=== PATIENT | male | born 1985 | race Caucasian/White ===

== ENCOUNTER 2021-07-28 15:34 | Emergency (ER) | payer OTHER, SELFPAY ==
[2021-07-28 16:04] VITALS: BP 131/87; PULSE 90; RESP 18; TEMP 36.6; O2SAT 97; BMI 28.8
--- NOTE | 2021-07-28 16:44 | ED_ITS ---
HPI - Back Pain/Injury General Chief Complaint: Back Pain/Injury Stated Complaint: back pain Time Seen by Provider: 07/28/21 16:14 Source: patient Mode of arrival: ambulatory Limitations: no limitations History of Present Illness HPI Narrative: 36 y/o male with no medical history presents to the ER with non- radiating, non-traumatic lower back pain for the last 3 days. He works for [employer] and does a lot of heavy lifting and moving of boxes but cannot recall a specific time where he injured his back. He states he woke up with the pain about 4-5 days ago and it has been getting worse. He has had to call out of wo rk. He has not taken any medications for the pain because he did not know what to take. He states the pain is aching and spasming in the entire lower back, worse with movement. No urinary symptoms. No fevers. No IVDA. No LE weakness, numbness, tingling. he reports having a cold and has been in contact with his girlfriend who is COVID-19 positive. He took an at home test today that was negative. He has been having a hard time getting into a comfortable position. MD elicited complaint: back pain Onset (ago): day(s) Timing: constant and progressively worsening Severity: severe Pain scale (0-10): 9 Quality: aching and spasming Location: right lower back and left lower back Radiation: none Exacerbating factors: movement, coughing/sneezing and lifting Relieving factors: immobilization and sitting upright Context: while lifting and turning/twisting Associated symptoms: denies other symptoms Treatments prior to arrival: other (topical lidocaine patch) Work related injury: Yes Related Data Previous Rx's Medication Instructions Recorded cyclobenzaprine 10 mg tablet 10 mg PO TID PRN #10 tab 07/28/21 hydrocodone 5 mg-acetaminophen 325 1 tab PO Q8H PRN #5 tab 07/28/21 mg tablet ibuprofen 800 mg tablet 800 mg PO Q8H PRN #14 tab 07/28/21 Allergies Allergy/AdvReac Type Severity Reaction Status Date / Time No Known Allergies Allergy Unverified 05/21/20 15:22 Review of Systems Review of Systems: Constitutional: No Fever, No Chills ENT/Mouth: No sore throat, No Rhinorrhea Cardiovascular: No Chest Pain, No SOB Respiratory: + Cough, No Sputum Gastrointestinal: No Nausea, No Vomiting,, No abdominal Pain Genitourinary: No Dysuria, No Urinary Frequency, No Hematuria Musculoskeletal: No joint pain, + Myalgias Skin: No Skin Lesions, No rash Neuro: No Weakness, No Numbness Heme/Lymph: No Bruising PMFSH Social History Social History Advance Directives: No Advance Directives Information Provided: No Physical Exam Vital Signs: Vital Signs: Last Vital Signs Temp 98 F 07/28/21 16:04 Pulse 90 07/28/21 16:04 Resp 18 07/28/21 16:04 BP 131/87 07/28/21 16:04 Pulse Ox 97 07/28/21 16:04 Body Mass Index 28.8 Appearance: Alert. Oriented X3. No acute distress. HEENT: normal inspection CVS: Normal heart rate and rhythm. Pulses normal. Respiratory: No respiratory distress. Skin: Skin warm and dry. Normal skin color. Normal skin turgor. No rashes. Back: normal inspection, tenderness of the soft tissues of the middle and lower lumbar areas bilaterally, no central tenderness. no CVA tenderness. limited rotation and flexion of the spine due to pain. Extremities: atraumatic x4, no LE edema. Neuro: Oriented X 3. No motor deficit. No sensory deficit. Gait slow but steady Course Course Course Narrative: 36 yo male presenting with LBP in the setting of recurrent heavy lifting and twisting at work. No red flag symptoms of LBP. No urinary symptoms. Most likely lumbar strain and spasm. Will treat with NSAID and muscle relaxer now and reassess. Will also swab for COVID given his recent exposure. Reevaluation(s) Reevaluation #1: COVID negative. Stable for d/c home with NSAID, muscle relaxer and supportive care. Encouraged to follow up with PCP. MDM - Back Pain/Injury Lab Data Labs: Lab Results 07/28/21 Range/Units 16:47 COVID-19 ([facility]) Negative (Negative) COVID-19 Clin Com See Note Critical Care Time Critical Care Time Critical Care Time: No Discharge Plan Discharge Clinical Impression: Strain of lumbar region Patient Disposition: Home, Self-Care Instructions: Low Back Strain (ED), Lower Back Exercises (ED) Additional Instructions: You were negative for COVID-19 today. Your back pain is most likely due to muscle strain and spasm. No bending, lifting or twisting. Use ice several times per day for 20 minutes at a time for the next 48 hours and then change to heat. Take medications as prescribed to help with pain and discomfort. Only take the hydrocodone for severe pain - do not drive after taking this medication, it can make you lethargic. Follow up with your Primary Care Doctor this week. If your pain worsens, if you develop new numbness, tingling, weakness, loss of function or incontinence call 911 or come back to the ER right away for evaluation. Prescriptions: New cyclobenzaprine 10 mg tablet 10 mg PO TID PRN (Reason: muscle spasm) Qty: 10 RF: 0 ibuprofen 800 mg tablet 800 mg PO Q8H PRN (Reason: pain) Qty: 14 RF: 0 hydrocodone-acetaminophen 5-325 mg tablet 1 tab PO Q8H PRN (Reason: severe pain (scale score 7-10)) Qty: 5 RF: 0 Referrals: [facility] [Provider Group] - 5 days (LBP, work related) Stand Alone Forms: Work/School Release
[2021-07-28 17:09] LABS: COVID-19 Test Negative (Negative)
[2021-07-28] MEDS: Cyclobenzaprine HCl 10 MG TABLET PO (17:51)
[2021-07-28] MEDS: Ibuprofen 600 MG TABLET PO (17:51)
== END 2021-07-28 17:55 | disposition home or self-care (01) ==
PROVIDERS: Physician Assistant; Emergency Provider Emergency Medicine; PCP Internal Medicine
DX: M54.50 Low back pain, unspecified (principal); R50.9 Fever, unspecified; Z20.822 Contact with and (suspected) exposure to COVID-19; Z79.899 Other long term (current) drug therapy
CPT/HCPCS: 36415; 87635; 99283

== ENCOUNTER 2021-08-02 09:56 | Emergency (ER) | payer SELFPAY ==
--- NOTE | ~2021-08-02 | XR_ITS ---
EXAMINATION: XR LUMBOSACRAL SPINE CLINICAL INFORMATION: Atraumatic lumbar pain COMPARISON: None TECHNIQUE: Three views of the lumbosacral spine. FINDINGS: The vertebral bodies and posterior elements are normal. The disc spaces are preserved and the vertebral alignment is normal. The paraspinal soft tissues are normal. XR/XR lumbar spine 2-3V IMPRESSION: Unremarkable lumbar spine examination.
[2021-08-02 10:46] VITALS: BP 133/79; PULSE 74; RESP 16; TEMP 36.6; O2SAT 97; BMI 28.8
--- NOTE | 2021-08-02 11:09 | ED_ITS ---
HPI - Back Pain/Injury General Chief Complaint: Back Pain/Injury Stated Complaint: back pain Time Seen by Provider: 08/02/21 11:09 Source: patient Mode of arrival: ambulatory Limitations: no limitations History of Present Illness HPI Narrative: patient was seen Monday, denies injury. Does heavy work but nothing that he recalls. No numbness, no bowel or bladder issues. Pain is worse with sitting. MD elicited complaint: back pain Onset (ago): day(s) Timing: intermittent Severity: mild Quality: sharp and aching Location: lumbar spine Exacerbating factors: none Associated symptoms: denies other symptoms Related Data Previous Rx's Medication Instructions Recorded cyclobenzaprine 10 mg tablet 10 mg PO TID PRN #10 tab 07/28/21 hydrocodone 5 mg-acetaminophen 325 1 tab PO Q8H PRN #5 tab 07/28/21 mg tablet ibuprofen 800 mg tablet 800 mg PO Q8H PRN #14 tab 07/28/21 gabapentin 100 mg capsule 100 mg PO TID #20 cap 08/02/21 Allergies Allergy/AdvReac Type Severity Reaction Status Date / Time No Known Allergies Allergy Unverified 05/21/20 15:22 Review of Systems Constitutional: Constitutional: Reports no additional constitutional complaints Eyes: Eyes: Reports no additional eye complaints ENT: Denies dizziness Cardiovascular: Cardiovascular: Reports no additional cardiovascular complaints Respiratory: Respiratory: Reports as per HPI Gastrointestinal: Gastrointestinal: Reports no additional gastrointestinal complaints Musculoskeletal: Musculoskeletal: Reports no additional musculoskeletal complaints Integumentary/Breasts: Skin/Breast: Denies rash Neurologic: Reports system reviewed and no additional complaints, except as documented, Denies dizziness and Denies Sensory deficit (Neuro) Psychiatric: Psychiatric: Denies anxiety [facility] Social History Social History Advance Directives: No Physical Exam Vital Signs: Vital Signs: Last Vital Signs Temp 97.8 F 08/02/21 10:46 Pulse 74 08/02/21 10:46 Resp 16 08/02/21 10:46 BP 133/79 08/02/21 10:46 Pulse Ox 97 08/02/21 10:46 Body Mass Index 28.8 Const: General: healthy appearing Nutritional Appearance: average body habitus Orientation/consciousness: oriented to person and patient oriented x3 Limitations: no limitations HENMT: Head: Yes normal to inspection Ears: external ears normal General nose exam: Normal external nose present Mouth: Normal oral and palatal mucosa present and oropharynx normal Throat: Yes posterior oropharynx normal Eyes: General: appearance normal, both eyes and all related structures Neck: Other: supple Neck: Yes normal visual inspection Chest: Chest palpation & inspection: normal inspection of the chest Resp: Auscultation: clear to auscultation bilaterally Cardio: Jugular venous distension: no JVD Rate: regular rate Rhythm: regular rhythm Heart sounds: S1 normal heart sound present and S2 normal heart sound present GI: Inspection: Yes normal to inspection Palpation (GI): Soft to palpation, nontender and No hepatosplenomegaly present Auscultation: normal bowel sounds Back/Spine/Pelvis: Other: Mild SI joint tenderness Skin: General skin exam: no rashes or lesions noted Neuro: General: oriented to person and patient oriented x3 Cranial nerves: Yes CN's II-XII intact bilaterally Motor exam (neuro): 5/5 motor strength present throughout Sensory Exam: No Sensory deficit (Neuro) Extrem: General: Yes normal to inspection Psych: Appearance: grossly normal MDM - Back Pain/Injury Imaging Data lumbar sacral spine: Radiologist's impression: FINDINGS: The vertebral bodies and posterior elements are normal. The disc spaces are preserved and the vertebral alignment is normal. The paraspinal soft tissues are normal. XR/XR lumbar spine 2-3V IMPRESSION: Unremarkable lumbar spine examination. Discharge Plan Discharge Clinical Impression: Lumbar radiculopathy Strain of lumbar region Qualifiers: Encounter type: initial encounter Qualified Code(s): S39.012A - Strain of mus eliezer, fascia and tendon of lower back, initial encounter Patient Disposition: Home, Self-Care Instructions: Acute Low Back Pain (ED), Lumbar Radiculopathy (ED) Prescriptions: New gabapentin 100 mg capsule 100 mg PO TID Qty: 20 RF: 0 No Action cyclobenzaprine 10 mg tablet 10 mg PO TID PRN (Reason: muscle spasm) Qty: 10 RF: 0 ibuprofen 800 mg tablet 800 mg PO Q8H PRN (Reason: pain) Qty: 14 RF: 0 hydrocodone-acetaminophen 5-325 mg tablet 1 tab PO Q8H PRN (Reason: severe pain (scale score 7-10)) Qty: 5 RF: 0 Referrals: Kevon Fallon MD [Primary Care Provider] - 1 week
[2021-08-02] MEDS: Gabapentin 100 MG CAPSULE PO (11:27)
[2021-08-02] MEDS: Ketorolac Tromethamine 60 MG/2 ML VIAL IM (11:27)
== END 2021-08-02 12:57 | disposition home or self-care (01) ==
PROVIDERS: Emergency Provider Emergency Medicine; PCP Internal Medicine
DX: S39.012A Strain of muscle, fascia and tendon of lower back, initial encounter (principal); M54.16 Radiculopathy, lumbar region; X50.0XXA Overexertion from strenuous movement or load, initial encounter; Y93.9 Activity, unspecified; Y92.9 Unspecified place or not applicable; Y99.0 Civilian activity done for income or pay; Z79.899 Other long term (current) drug therapy
CPT/HCPCS: 72100; 96372; 99283; 99284; J1885

== ENCOUNTER 2023-01-06 07:20 | Emergency (ER) | payer OTHER, SELFPAY ==
--- NOTE | ~2023-01-06 | CT_ITS ---
EXAMINATION: CT ABDOMEN AND PELVIS WITHOUT CONTRAST CLINICAL INFORMATION: Flank pain COMPARISON: 08/12/2017 TECHNIQUE: Multidetector volumetric imaging was performed from the superior aspect of the liver through the pubic symphysis. Sagittal and coronal reformatted images were obtained on the technologist's workstation. This CT examination was performed using dose optimization techniques as appropriate, variously including the following: *Automated exposure control *Adjustment of mA and/or kV according to patient size (this includes techniques or standardized protocols for targeted exams where dose is matched to indication/reason for exam; i.e. extremities or head) *Use of iterative reconstruction technique DLP: 653 mGy-cm FINDINGS: LUNG BASES: The visualized lung bases are unremarkable. LIVER, GALLBLADDER, AND BILIARY TREE: The liver is normal in size, shape, and attenuation. No focal hepatic lesion or biliary ductal dilatation is present. There are several calculi within the gallbladder neck, the largest measuring 13 x 8 mm, though this could reflect a coalescence of multiple smaller calculi. In addition, there is a 3 mm calculus in the proximal cystic duct, with a suggestion of wall thickening of the duct about the calculus. Gallbladder wall thickening and very mild pericholecystic edema is suspected. No calculi are detected in the distal common bile duct. There is no intrahepatic biliary ductal dilatation. PANCREAS: Unremarkable. SPLEEN: Unremarkable. ADRENAL GLANDS: Unremarkable. KIDNEYS AND URETERS: The kidneys are normal in size, shape, and attenuation. No hydronephrosis, hydroureter, or calculi seen. No perinephric stranding. BLADDER: Unremarkable. GASTROINTESTINAL TRACT: A sliding hiatal hernia is present. Sigmoid diverticulosis is present without diverticulitis. The small bowel and appendix are unremarkable ABDOMINAL WALL: No significant hernia is appreciated. LYMPH NODES: Normal. VASCULAR: Unremarkable. PELVIC VISCERA: Unremarkable. OSSEOUS STRUCTURES: Unremarkable. CT/CT abdomen pelvis wo IV con IMPRESSION: 1. Cholelithiasis, with gallbladder wall thickening and mild pericholecystic infiltration cyst is just for acute cholecystitis. 2. Calculi within the gallbladder neck and cystic duct, with thickening of the adjacent cystic duct wall, but no intrahepatic biliary ductal dilatation or distal common bile duct calculi are evident. 3. Colonic diverticulosis without diverticulitis. Fleischner guidelines were followed.
--- NOTE | 2023-01-06 07:42 | ED_ITS ---
HPI - General Adult General Chief complaint: Abdominal Pain Stated complaint: abd pain quest kidney stone Time Seen by Provider: 01/06/23 07:41 Source: patient Mode of arrival: ambulatory Limitations: no limitations History of Present Illness HPI narrative: Patient is a 37 year old assigned male at with a history of kidney stones presenting to the emergency department today with abdominal pain. Patient states that he has been having intermittent abdominal pain and he is concerned that it may be a kidney stone that just isn't passing. Patient denies any dizziness, lightheadedness, nausea, vomiting, fever, chills, blurry vision, double vision, loss of vision, chest pain, difficulty breathing, shortness of breath, back pain, night sweats, pain with urination, increased urinary frequency, increased urinary urgency, blood in his urine or stool, syncope or a near syncopal episode, recent trauma or falls, bowel incontinence, bladder incontinence, bowel retention, bladder retention, or any other complaints at this time. Onset (ago): day(s) Location: abdomen Radiation: non-radiation Severity: mild Severity scale (1-10): 3 Relieving factors: none Exacerbating factors: none Associated symptoms: denies other symptoms Treatments prior to arrival: none Related Data Previous Rx's Medication Instructions Recorded cyclobenzaprine 10 mg tablet 10 mg PO TID PRN muscle spasm #10 07/28/21 tabs hydrocodone 5 mg-acetaminophen 325 1 tab PO Q8H PRN severe pain 07/28/21 mg tablet (scale score 7-10) #5 tabs ibuprofen 800 mg tablet 800 mg PO Q8H PRN pain #14 tabs 07/28/21 gabapentin 100 mg capsule 100 mg PO TID #20 caps 08/02/21 Allergies Allergy/AdvReac Type Severity Reaction Status Date / Time No Known Allergies Allergy Unverified 05/21/20 15:22 Review of Systems Constitutional: Constitutional: Reports no additional constitutional complaints, Denies chills, Denies fever(s) and Denies night sweats Eyes: Eyes: Reports no additional eye complaints, Denies blurry vision, Denies change in vision, Denies diplopia, Denies eye discharge, Denies loss of vision and Denies eye pain ENT: Denies dizziness Cardiovascular: Cardiovascular: Reports no additional cardiovascular complaints, Denies chest pain, Denies lightheadedness, Denies Loss of Co nsciousness and Denies dyspnea Respiratory: Respiratory: Reports no additional respiratory complaints and Denies dyspnea Gastrointestinal: Gastrointestinal: Reports no additional gastrointestinal complaints, Reports abdominal pain, Denies melena, Denies hematochezia, Denies change in bowel habits and Denies change in stool character Genitourinary: Genitourinary: Reports no additional male genitourinary complaints, Denies hematuria, Denies oliguria, Denies difficulty urinating, Denies dysuria, Denies urinary frequency, Denies urinary hesitancy, Denies urinary incontinence and Denies urinary urgency Musculoskeletal: Musculoskeletal: Reports no additional musculoskeletal complaints, Denies numbness and Denies tingling Neurologic: Denies dizziness, Denies loss of vision, Denies numbness and Denies tingling Psychiatric: Psychiatric: Reports no additional psychiatric complaints Endocrine: Endocrine: Reports no additional endocrine complaints Hematologic/Lymphatic: Hematologic/Lymphatic: Reports no additional hematologic/lymphatic complaints Allergic/Immunologic: Allergic/Immunologic: Reports no additional allergic/immunologic complaints PMFSH Past Medical History Attestation statement: The following information was validated with the patient. Source: old records reviewed and nursing notes reviewed Social History Social History Smoked in Last 30 Days: No Use of substances other than those prescribed or required for medical reasons: No Advance Directives: No Advance Directives Information Provided: Yes Physical Exam ED Vital Signs: Vital Signs - 24 hr 01/06/23 07:44 01/06/23 07:54 Temperature 97.9 F 97.9 F Pulse Rate 50 50 Respiratory Rate 18 16 Blood Pressure 120/79 120/79 Pulse Oximetry 99 96 Oxygen Delivery Method Room Air Room Air BMI result Body Mass Index 28.9 Const General: cooperative, no acute distress, alert and awake Nutritional Appearance: well nourished Orientation/consciousness: patient oriented x3 Limitations: no limitations HENMT Head: Yes normal to inspection and Yes atraumatic Ears: hearing grossly normal bilaterally and external ears normal General nose exam: Normal external nose present, no nasal discharge noted and no epistaxis Face and sinus: Yes normal facial exam, No abrasion and No laceration Mouth: Normal oral and palatal mucosa present, no drooling and no muffled voice Eyes General: appearance normal, both eyes and all related structures Periorbital: periorbital findings normal Eyelids: Yes eyelids normal Conjunctivae: conjunctivae normal Pupils: Equal, round and reactive pupils present EOM: EOMs intact bilaterally Neck Neck: Yes normal visual inspection, Yes full ROM and Yes no lymphadenopathy Chest Chest palpation & inspection: normal inspection of the chest Resp Effort & Inspection: normal respiratory effort and able to speak in complete sentences Auscultation: clear to auscultation bilaterally GI Inspection: Yes normal to inspection Palpation (GI): Soft to palpation, not firm, nontender and no guarding Neuro General: patient oriented x3 and moves all extremities Cranial nerves: Yes Equal, round and reactive pupils present Cognition (Neuro): normal cognition Motor exam (neuro): 5/5 motor strength present throughout Sensory Exam: Normal double simultaneous stimulation for sensation Coordination: [id number]-[id number] test normal Extrem General: Yes normal to inspection, Yes full ROM and Yes capillary refill normal Psych Appearance: grossly normal Mental Status: mental status grossly normal Affect: normal affect Attitude: cooperative Thought process: Normal thought process present Thought content: Normal thought content present Insight: Good insight present (Psych) Medical Decision Making Medical Decision Making MDM Narrative: Patient is a 37 year old assigned male at with a history of kidney stones presenting to the emergency department today with intermittent diffuse abdominal pain. Patient's physical exam was unremarkable. Patient's blood work was unremarkable. Patient's urine showed blood but no acute evidence of infection. Patient's abdomen/pelvis CT showed evidence of cholelithiasis with possible cholecystitis. I spoke to the general surgery team who recommended the patient follow up outpatient on Monday given he is hemodynamically stable and does not have any symptoms presently. I explained my physical exam findings as well as all test results to the patient. I answered all questions asked by the patient. Patient received IM Toradol which he stated helped his symptoms significantly. I stressed the importance of the patient taking his medication as prescribed. I stressed the importance of the patient following up with his primary care provider and a general surgeon on 01/09/2023. I stressed the importance of the patient returning to the emergency department immediately if his symptoms were to worsen or if he were to develop any dizziness, shortness of breath, difficulty breathing, chest pain, blurry vision, loss of vision, nausea, vomiting, abdominal pain, fever, chills, back pain, or any other complaints. Patient verbalized agreement and understanding with this treatment plan and discharge. Differential Diagnosis Differential Diagnoses: The differential diagnosis associated with the presentation includes cholelithiasis, kidney stone Admission/Observation Consideration of admission/observation: Escalation of care including admission/observation considered Admission of this patient was considered. If the general surgery team had concern of an acute cholecystitis requiring surgical intervention, the patient would have been admitted. Consult Healthcare Provider Management of the patient was discussed with: Director Of Gift Planning (spoke to general surgeon as written in the MDM portion of this chart) Lab Data [facility] Lab Attestation statement: I reviewed the patient's lab results. 01/06/23 07:53 01/06/23 07:53 Labs: Lab Results 01/06/23 01/06/23 01/06/23 Range/Units 07:53 07:53 07:53 WBC 7.1 (4.8-10.8) X10*3/uL RBC 4.99 (4.60-5.80) X10*6/uL Hgb 14.5 (14.0-18.0) g/dl Hct 41.6 L (42.0-52.0) % MCV 83.4 (80.0-98.0) fL MCH 29.1 (27.0-33.0) pg MCHC 34.9 (31.0-36.0) g/dl RDW 12.6 (11.0-16.0) % Plt Count 247 (160-400) X10*3/uL MPV 9.1 L (9.4-12.4) fL Immature Gran % (Auto) 0.4 (0.0-0.4) % Neut % (Auto) 56.0 (45-73) % Lymph % (Auto) 31.5 (20-40) % [place] % (Auto) 7.6 (2-11) % Eos % (Auto) 3.9 (0-4) % Baso % (Auto) 0.6 (0-2) % Lymph # (Auto) 2.2 (1.2-4.9) X10*3/uL [place] # (Auto) 0.5 (0.1-1.2) X10*3/uL Eos # (Auto) 0.3 (0.0-0.4) X10*3/uL Baso # (Auto) 0.0 (0.0-0.2) X10*3/uL Abs Immat Gran (auto) 0.03 (0.00-0.03) X10*3/uL Absolute Neuts (auto) 4.0 (2.0-8.3) x10*3/uL Absolute Nucleated RBC 0.000 (0.0-0.012) X10*3/uL Nucleated RBC % (auto) 0.0 (0.0-0.2) /100WBC Sodium 141 (135-145) mmol/L Potassium 3.9 (3.3-5.1) mmol/L Chloride 110 H (96-108) mmol/L Carbon Dioxide 23 (22-29) mmol/L Anion Gap 12 (12-20) BUN 17 H (9-16) mg/dL Creatinine 1.12 (0.5-1.4) mg/dL Estim Creat Clear Calc 112.9 Estimated GFR > 60 Random Glucose 102 (60-115) mg/dL Estimat Average Glucose 103 mg/dL Hemoglobin A1c % 5.2 % Calcium 9.4 (8.4-10.2) mg/dL Magnesium 2.2 (1.6-2.6) mg/dL Total Bilirubin 0.7 (0.0-1.0) mg/dL AST 18 (5-37) U/L ALT 27 (0-40) U/L Alkaline Phosphatase 73 (39-117) U/L Total Protein 6.7 (6.5-8.0) g/dL Albumin 4.1 (3.5-5.0) g/dL Urine Color Urine Appearance Urine pH (5.0-9.0) Ur Specific [place] (1.005-1.025) Urine Protein (Neg-Trace) mg/dL Urine Glucose (UA) (Negative) mg/dL Urine Ketones (Negative) mg/dL Urine Blood (Negative) Urine Nitrite (Negative) Ur Leukocyte Esterase (Negative) Urine RBC (0-2) /HPF Urine WBC (0-5) /HPF Ur Squamous Epith Cells (0-2) /HPF Urine Bacteria (None Seen) Hyaline Casts (0-2) /LPF 01/06/23 Range/Units 08:16 WBC (4.8-10.8) X10*3/uL RBC (4.60-5.80) X10*6/uL Hgb (14.0-18.0) g/dl Hct (42.0-52.0) % MCV (80.0-98.0) fL MCH (27.0-33.0) pg MCHC (31.0-36.0) g/dl RDW (11.0-16.0) % Plt Count (160-400) X10*3/uL MPV (9.4-12.4) fL Immature Gran % (Auto) (0.0-0.4) % Neut % (Auto) (45-73) % Lymph % (Auto) (20-40) % [place] % (Auto) (2-11) % Eos % (Auto) (0-4) % Baso % (Auto) (0-2) % Lymph # (Auto) (1.2-4.9) X10*3/uL [place] # (Auto) (0.1-1.2) X10*3/uL Eos # (Auto) (0.0-0.4) X10*3/uL Baso # (Auto) (0.0-0.2) X10*3/uL Abs Immat Gran (auto) (0.00-0.03) X10*3/uL Absolute Neuts (auto) (2.0-8.3) x10*3/uL Absolute Nucleated RBC (0.0-0.012) X10*3/uL Nucleated RBC % (auto) (0.0-0.2) /100WBC Sodium (135-145) mmol/L Potassium (3.3-5.1) mmol/L Chloride (96-108) mmol/L Carbon Dioxide (22-29) mmol/L Anion Gap (12-20) BUN (9-16) mg/dL Creatinine (0.5-1.4) mg/dL Estim Creat Clear Calc Estimated GFR Random Glucose (60-115) mg/dL Estimat Average Glucose mg/dL Hemoglobin A1c % % Calcium (8.4-10.2) mg/dL Magnesium (1.6-2.6) mg/dL Total Bilirubin (0.0-1.0) mg/dL AST (5-37) U/L ALT (0-40) U/L Alkaline Phosphatase (39-117) U/L Total Protein (6.5-8.0) g/dL Albumin (3.5-5.0) g/dL Urine Color Yellow Urine Appearance Clear Urine pH 5.5 (5.0-9.0) Ur Specific [place] >= 1.030 H (1.005-1.025) Urine Protein Trace (Neg-Trace) mg/dL Urine Glucose (UA) Negative (Negative) mg/dL Urine Ketones Negative (Negative) mg/dL Urine Blood Moderate (2+) H (Negative) Urine Nitrite Negative (Negative) Ur Leukocyte Esterase Trace H (Negative) Urine RBC 6-10 H (0-2) /HPF Urine WBC 21-50 H (0-5) /HPF Ur Squamous Epith Cells 0-2 (0-2) /HPF Urine Bacteria None Seen (None Seen) Hyaline Casts 0-2 (0-2) /LPF Independent Interpretation I performed an independent interpretation of an: CT Scan Interpretation: My interpretation is in agreement with the radiologist's impression of this imaging study. EXAMINATION: CT ABDOMEN AND PELVIS WITHOUT CONTRAST? CLINICAL INFORMATION: Flank pain? COMPARISON: 08/12/2017 TECHNIQUE: Multidetector volumetric imaging was performed from the superior aspect of the liver through the pubic symphysis. Sagittal and coronal reformatted images were obtained on the technologist's workstation.? This CT examination was performed using dose optimization techniques as appropriate, variously including the following: *Automated exposure control *Adjustment of mA and/or kV according to patient size (this includes techniques or standardized protocols for targeted exams where dose is matched to indication/reason for exam; i.e. extremities or head) *Use of iterative reconstruction technique DLP: 653 mGy-cm FINDINGS: LUNG BASES: The visualized lung bases are unremarkable.? LIVER, GALLBLADDER, AND BILIARY TREE: The liver is normal in size, shape, and attenuation. No focal hepatic lesion or biliary ductal dilatation is present. There are several calculi within the gallbladder neck, the largest measuring 13 x 8 mm, though this could reflect a coalescence of multiple smaller calculi. In addition, there is a 3 mm calculus in the proximal cystic duct, with a suggestion of wall thickening of the duct about the calculus. Gallbladder wall thickening and very mild pericholecystic edema is suspected. No calculi are detected in the distal common bile duct. There is no intrahepatic biliary ductal dilatation.? PANCREAS: Unremarkable.? SPLEEN: Unremarkable.? ADRENAL GLANDS: Unremarkable.? KIDNEYS AND URETERS: The kidneys are normal in size, shape, and attenuation. No hydronephrosis, hydroureter, or calculi seen. No perinephric stranding. ? BLADDER: Unremarkable.? GASTROINTESTINAL TRACT: A sliding hiatal hernia is present. Sigmoid diverticulosis is present without diverticulitis. The small bowel and appendix are unremarkable ? ABDOMINAL WALL: No significant hernia is appreciated.? LYMPH NODES: Normal. VASCULAR: Unremarkable. PELVIC VISCERA: Unremarkable.? OSSEOUS STRUCTURES: Unremarkable.? CT/CT abdomen pelvis wo IV con IMPRESSION: ? 1. Cholelithiasis, with gallbladder wall thickening and mild pericholecystic infiltration cyst is just for acute cholecystitis. ? 2. Calculi within the gallbladder neck and cystic duct, with thickening of the adjacent cystic duct wall, but no intrahepatic biliary ductal dilatation or distal common bile duct calculi are evident. ? 3. Colonic diverticulosis without diverticulitis. ? Fleischner guidelines were followed. Dictated By: Tavares Lozano MD Signed By: Electronically signed by Tavares Lozano MD 01/06/23 7449 Critical Care Time Critical Care Time Critical Care Time: Yes Total Critical Care Time: 30 Attestation: I spent 30 minutes of Critical Care Time with this patient. This does not include time spent on separately reported billable procedures. Discharge Plan Discharge Clinical Impression: Cholelithiasis Patient Disposition: Home, Self-Care Instructions: Gallstones (ED) Additional Instructions: Follow up with your primary care provider and a general surgeon. Return to the emergency department immediately if your symptoms worsen or if you develop any dizziness, shortness of breath, difficulty breathing, chest pain, blurry vision, loss of vision, nausea, vomiting, abdominal pain, fever, chills, back pain, or any other complaints. Prescriptions: No Action gabapentin 100 mg capsule 100 mg PO TID Qty: 20 0RF cyclobenzaprine 10 mg tablet 10 mg PO TID PRN (Reason: muscle spasm) Qty: 10 0RF ibuprofen 800 mg tablet 800 mg PO Q8H PRN (Reason: pain) Qty: 14 0RF hydrocodone-acetaminophen 5-325 mg tablet 1 tab PO Q8H PRN (Reason: severe pain (scale score 7-10)) Qty: 5 0RF Referrals: [facility] [place] General Surgeons [Provider Group] (Call to establish and follow up with a general surgeon. Plan follow up in the office on Monday01/09/2023) Kevon Fallon III, MD [Primary Care Provider] - Stand Alone Forms: Work/School Release Print Language: Hungarian
[2023-01-06 07:44] VITALS: BP 120/79; PULSE 50; RESP 18; TEMP 36.6; O2SAT 99
[2023-01-06 07:54] VITALS: BP 120/79; PULSE 50; RESP 16; TEMP 36.6; O2SAT 96; BMI 28.9
[2023-01-06 07:59] LABS: MANUAL DIFF FLAG NO
[2023-01-06 08:02] LABS: Basophils Percent Auto 0.6 % (0-2); Eosinophils Absolute Auto 0.3 X10*3/uL (0.0-0.4); Eosinophils Percent Auto 3.9 % (0-4); Hematocrit 41.6 % (42.0-52.0); Hemoglobin 14.5 g/dl (14.0-18.0); Imm Gran Abs Auto 0.03 X10*3/uL (0.00-0.03); Imm Gran Pct Auto 0.4 % (0.0-0.4); Lymphocytes Absolute Auto 2.2 X10*3/uL (1.2-4.9); Lymphocytes Percent Auto 31.5 % (20-40); Mean Corpuscular HGB Conc 34.9 g/dl (31.0-36.0); Mean Corpuscular Hemoglobin 29.1 pg (27.0-33.0); Mean Corpuscular Volume 83.4 fL (80.0-98.0); Mean Platelet Volume 9.1 fL (9.4-12.4); Monocytes Absolute Auto 0.5 X10*3/uL (0.1-1.2); Monocytes Percent Auto 7.6 % (2-11); Platelet Count 247 X10*3/uL (160-400); Red Blood Count 4.99 X10*6/uL (4.60-5.80); Red Cell Distribution Width 12.6 % (11.0-16.0); White Blood Count 7.1 X10*3/uL (4.8-10.8)
[2023-01-06 08:12] LABS: Estimated Average Glucose 103 mg/dL; Hemoglobin A1c % 5.2 %
[2023-01-06 08:15] LABS: Alanine Aminotransferase 27 U/L (0-40); Albumin Level 4.1 g/dL (3.5-5.0); Alkaline Phosphatase 73 U/L (39-117); Anion Gap 12 (12-20); Aspartate Amino Transferase 18 U/L (5-37); Bilirubin Total 0.7 mg/dL (0.0-1.0); Blood Urea Nitrogen 17 mg/dL (9-16); Calcium 9.4 mg/dL (8.4-10.2); Carbon Dioxide 23 mmol/L (22-29); Chloride 110 mmol/L (96-108); Creatinine Clr Calc Pharmacy 112.9; Estimated Glomerular Filt Rate > 60; Glucose Random 102 mg/dL (60-115); Magnesium 2.2 mg/dL (1.6-2.6); Potassium 3.9 mmol/L (3.3-5.1); Sodium 141 mmol/L (135-145); Total Protein 6.7 g/dL (6.5-8.0)
[2023-01-06 08:33] LABS: Appearance Urine Clear; Color Urine Yellow; Glucose Urine UA Negative (Negative); Leukocyte Esterase Urine Trace (Negative); Nitrite Urine Negative (Negative); PH 5.5 (5.0-9.0); Specific Gravity - Urine >= 1.030 (1.005-1.025); UMIC TRIGGER UACC YES; Urine Blood Moderate (2+) (Negative); Urine Ketones Negative (Negative); Urine Protein Trace mg/dL (Neg-Trace)
[2023-01-06 08:36] LABS: Bacteria Urine None Seen (None Seen); Hyaline Casts Urine 0-2 /LPF (0-2); Squamous Epithelial Cell Urine 0-2 /HPF (0-2); UACC Culture Trigger YES; WBC Urine 21-50 /HPF (0-5)
[2023-01-06 09:56] VITALS: BP 116/73; PULSE 53; RESP 18; TEMP 36.4; O2SAT 97
[2023-01-06] MEDS: Ketorolac Tromethamine 15 MG/ML VIAL IM (10:00)
== END 2023-01-06 10:04 | disposition home or self-care (01) ==
PROVIDERS: Physician Assistant Medical; Emergency Provider Emergency Medicine; PCP Internal Medicine
DX: K80.20 Calculus of gallbladder without cholecystitis without obstruction (principal); R10.2 Pelvic and perineal pain; R10.9 Unspecified abdominal pain; Z79.899 Other long term (current) drug therapy
CPT/HCPCS: 36415; 74176; 80053; 81001; 83036; 83735; 85025; 87086; 96372; 99284; J1885

== ENCOUNTER → 2023-01-16 15:33 | Outpatient (BNVA) | payer OTHER, SELFPAY | PROVIDERS: PCP Internal Medicine; Visit Provider Surgery ==

== ENCOUNTER 2023-02-03 08:03 | Day surgery (SDC) | payer OTHER, SELFPAY ==
[2023-01-31 15:20] VITALS: BMI 28.6
--- NOTE | 2023-02-02 09:52 | HO.ANESPROP2 ---
Documented by User: Rehana Velazco NP 02/02/23 09:52 HPI - Anesthesia Eval Consult details Narrative: 37yo M for Cholecystectomy Laparoscopic, poss open PMFSH Active Problems Active Problems: All Active Problems (Updated 01/31/23 @ 15:07 by Cleo Kaufman RN) Gallstones (Acute) Past Medical History Medical History (Updated 01/31/23 @ 15:07 by Cleo Kaufman RN) Acid reflux Anxiety Gallstones Surgical History Surgical History (Updated 01/31/23 @ 15:02 by Cleo Kaufman RN) History of mandibular surgery Hx of surgical procedure Social History Social History Alcohol intake: never Patient Tobacco Use Status: Never used Tobacco Second Hand Smoke Exposure: No Use of substances other than those prescribed or required for medical reasons: No Are you DNR?: No Advance Directives: No Advance Directives Information Provided: Yes Advance Directives on File: No Meds Allergies Allergy/AdvReac Type Severity Reaction Status Date / Time No Known Allergies Allergy Verified 02/03/23 09:56 Home Medications Medication Instructions Recorded Confirmed Last Taken Type albuterol sulfate 90 mcg/actuation 2 puff inhalation Q4H PRN wheezing 01/31/23 01/31/23 Unknown History aerosol inhaler multivitamin 1 tab PO DAILY 01/31/23 01/31/23 Unknown History omeprazole 20 mg capsule,delayed 20 mg PO DAILY PRN Acid Reflux 01/31/23 01/31/23 Unknown History release Exam Exam Date and Time: February 02, 2023 0952 Height,Weight and Vital Signs: Height 6 ft 2 in Weight 101.151 kg Pertinent Lab Results Pertinent Lab Results: Laboratory Tests 01/06/23 01/06/23 07:53 07:53 WBC 7.1 Hgb 14.5 Hct 41.6 L Plt Count 247 Sodium 141 Potassium 3.9 Chloride 110 H Carbon Dioxide 23 BUN 17 H Creatinine 1.12 Assessment and Plan Assessment Anesthesia Assessment: Chart Reviewed Documented by User: Tessa Romeo MD 02/03/23 10:41 PMFSH Past Medical History Medical History (Updated 01/31/23 @ 15:07 by Cleo Kaufman, RN) Acid reflux Anxiety Gallstones Surgical History Surgical History (Updated 01/31/23 @ 15:02 by Cleo Kaufman, RN) History of mandibular surgery Hx of surgical procedure History of Problems with Anesthesia: No Social History Social History Alcohol intake: never Patient Tobacco Use Status: Never used Tobacco Second Hand Smoke Exposure: No Use of substances other than those prescribed or required for medical reasons: No Are you DNR?: No Advance Directives: No Advance Directives Information Provided: Yes Advance Directives on File: No Meds Allergies Allergy/AdvReac Type Severity Reaction Status Date / Time No Known Allergies Allergy Verified 02/03/23 09:56 Home Medications Medication Instructions Recorded Confirmed Last Taken Type albuterol sulfate 90 mcg/actuation 2 puff inhalation Q4H PRN wheezing 01/31/23 01/31/23 Unknown History aerosol inhaler multivitamin 1 tab PO DAILY 01/31/23 01/31/23 Unknown History omeprazole 20 mg capsule,delayed 20 mg PO DAILY PRN Acid Reflux 01/31/23 01/31/23 Unknown History release Exam Airway Mallampati Class: III (hx jaw surgery) TM Dist: >3cm Neck ROM: Full Loose/Missing/Broken Teeth: No Heart: RRR Lungs: CTA Assessment and Plan Assessment Anesthesia Assessment: Anesthesia Plan Discussed Final Anesthetic Review History of Problems with Anesthesia: No NPO: Yes ASA Class: II Final Preanesthetic Review: Meds/Allgs Chart Reviewed, Consent Obtained/Reviewed and Anes Risks/Benef Reviewed Patient Risk: Low Procedure Risk: Intermediate Anesthetic Plan Anesthetic Plan: GA Disposition: Standard PACU
[2023-02-03] VITALS (7 sets, daily range): BP systolic 120–127; BP diastolic 59–75; PULSE 52–75; RESP 12–16; TEMP 36.3–36.4; O2SAT 96–100
[2023-02-03] MEDS: Lactated Ringers 1,000 ML 100 ML IVCONT (08:46)
--- NOTE | 2023-02-03 09:13 | MHC.SHP ---
Pre-Procedural Eval Section A Date of Service: 02/03/23 The patient is an INPATIENT: No Changes since office visit: No Cold of Flu in the past 2 weeks, No New Medical Problems, No Changes in Medication and No Patient answered all questions The History & Physical has been completed within 30 days and I have reviewed it.: Yes Section B Chief Complaint: Calculus of gallbladder without cholecystitis Allergies: Allergies Allergy/AdvReac Type Severity Reaction Status Date / Time No Known Allergies Allergy Unverified 01/16/23 15:49 Plan I have reviewed the history and physical and performed a pertinent physical examination on my patient. No changes have occurred unless specified. Time Spent With Patient Time: Total time managing care of this patient today ____ minutes.
--- NOTE | 2023-02-03 11:00 | W.PM.OPN ---
Operative Note Operative Note Date of Service: 02/03/23 Narrative: Preop diagnosis: Symptomatic gallstones Postop diagnosis: The same Procedure: Laparoscopic cholecystectomy Surgeon: Brock Lewis MD pharmacy sales assistant: SHIRLENE Martinez The patient is a 37-year-old male who had been to the ER because of right upper quadrant pain and was noted to have gallstones. Understood the technique of laparoscopic cholecystectomy. He was aware of the risks, benefits, and alternatives He was brought to the operating room. He was placed supine under general anesthesia via endotracheal tube. The abdomen was prepped and draped in the usual sterile fashion. A surgical time-out was done. The patient received Cefotan 2 g IV preoperatively. I made a short supraumbilical incision using a blade 15. This was carried down through the full-thickness of the skin and subcutaneous fat down to the fascia. The fascia was incised. The peritoneum was entered. Through this incision a Radha port was introduced. Pneumoperitoneum was introduced to a pressure of 15 minutes hg. From here on the rest of the procedure was done under vision with the 10 mm laparoscoped. With laparoscopic visualization, inserted a 5/12 mm port in the epigastric area below the subcostal margin through a small stab incision. Two 5 mm ports introduced a small incisions below the subcostal margin along the anterior axillary line and the midclavicular line. Graspers were placed through these working ports. The patient was placed in head-up and ocxy-bahd-erys position. The gallbladder was seen noted to be supple and non inflamed. I applied a grasper at the fundus of the gallbladder to retract this cephalad. This allowed us to expose the rest of the gallbladder. I was able to apply a in other grasper towards the pouch of the gallbladder near the neck. The gallbladder was then retracted in a cephalad and lateral fashion to put the cystic duct on stretch. There was note of a lot of fibrosis and areolar tissue surrounding the neck so we had to do some dissection using the [place] dissector to clear this. By doing so was able to visualize the cystic duct. This was skeletonized. We were able to achieve a critical view of the hepatocystic triangle. The influence of the cystic duct with the neck of the gallbladder is well-defined so I applied clips on the cystic duct with 2 clips being applied distally. The cystic duct was transected between clips and the scissors. I continued to dissect the rest of the fatty areolar tissue in the area until was able to visualize the cystic artery. Clips were applied and this was transected between clips. I then proceeded to divide across the hilum using the electrocautery spatula. I made an incision on the peritoneum of the gallbladder using electrocautery and proceeded to define a plane of dissection between the gallbladder wall and the liver bed with a combination of blunt dissection with the tip of the spatula and electrocautery. I proceeded to separate the gallbladder from the liver bed using this form of dissection along a well-defined plane all the way to the fundus until the entire gallbladder was completely . The gallbladder was retrieved through an endobag through the umbilical incision. I reinserted all ports and re-insufflated. I examined the subhepatic space. The clips were intact. There is no signs of any bleeding. Examined all 4 quadrants and there was no other pathology. There was no sign of any bowel injury. Once hemostasis was confirmed, I desufflated through the port sites. I removed all ports under vision with the laparoscope. The umbilical port was removed last. The fascia of the umbilical incision was closed with [id number] Polysorb 0 stitch. Skin closure was achieved on all incisions using Polysorb 4-0 subcuticular running sutures. Steri-Strips and dressings were applied. All incisions were infiltrated with Marcaine 0.5% for possible AMANDA. The procedure was then completed The patient tolerated procedure well. There were no immediate complications. Initial and final counts of sponges instruments were correct. Estimated blood loss was about 10 cc. The patient was extubated without difficulty and transferred to the recovery room with stable vital signs.
[2023-02-03] MEDS: oxyCODONE HCl Immed Release 5 MG TABLET PO (11:42)
== END 2023-02-03 12:40 | disposition home or self-care (01) ==
PROVIDERS: PCP Internal Medicine; Visit Provider Surgery
PROC: 0FT44ZZ Resection of Gallbladder, Percutaneous Endoscopic Approach (ICD-10-PCS; CPT 47562; principal; 2023-02-03 09:40)
DX: K80.10 Calculus of gallbladder with chronic cholecystitis without obstruction (principal); K21.9 Gastro-esophageal reflux disease without esophagitis; Z79.1 Long term (current) use of non-steroidal anti-inflammatories (NSAID); Z79.899 Other long term (current) drug therapy
CPT/HCPCS: 47562; 88304; J0131; J1100; J1885; J2250; J2405; J2795; J3010

== ENCOUNTER → 2023-02-16 09:44 | Outpatient (BNVA) | payer OTHER, SELFPAY | PROVIDERS: PCP Internal Medicine; Visit Provider Surgery ==